=== PATIENT | male | born 1980 | race Two or more races ===

== ENCOUNTER 2020-04-30 14:14 | Emergency (ER) | payer SELFPAY ==
[~2020-04-30] VITALS: Ht 167.6 cm; Wt 63.5 kg
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
[2020-04-30 14:29] VITALS: BP 134/67
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
[2020-04-30] MEDS ORDERED: Tetanus/Diptheria/Pertussis IM ONE (14:45)
[2020-04-30] MEDS ORDERED: NORCO 7.5-3251 EACH ORAL (15:18)
[2020-04-30] MEDS ORDERED: IBUPROFEN600 M1 ORAL (15:18)
--- NOTE | 2020-04-30 15:38 | NUR ---
ED Nurse Note: pt's R fingers and L hand placed in splint per ERMD order, pt tolerated well, verbalized understanding of f/u instructions.
[2020-04-30 15:50] VITALS: BP 134/67
--- NOTE | 2020-04-30 15:50 | NUR ---
ER DISCHARGE NOTE: Patient is cleared to be discharged per ERMD, pt is aox4, on room air, with stable vital signs. pt was given dc, prescription and follow up instructions, pt was able to verbalize understanding, pt id band removed without complications. pt is able to ambulate with steady gait. pt took all belongings.
--- NOTE | 2020-04-30 18:49 | Diagnostic Imaging Report ---
Indication: Left hand pain Technique: 3 views left hand Comparison: none Findings: There is a comminuted impacted fracture of the fifth metacarpal shaft. The joint spaces are preserved. No other acute fractures. No dislocations. Impression: Positive for fifth metacarpal shaft fracture
--- NOTE | 2020-04-30 18:55 | Diagnostic Imaging Report ---
Clinical Indication:Wrist pain Technique: 3 views of the left wrist Comparison: None Findings: No acute fractures. No dislocations. The joint spaces are preserved Impression: Negative
--- NOTE | 2020-04-30 19:04 | Diagnostic Imaging Report ---
Indication: Right hand pain Technique: 3 views right hand Comparison: none Findings: Linear opacity is seen adjacent to the head of the third metacarpal, best visualized on the AP view. There is a corner fracture, minimally displaced, of the lateral base of the fifth proximal phalanx. No other acute fractures. No dislocations. Impression: Positive for fifth proximal phalangeal fracture. Possible small foreign body adjacent to the head of the third metacarpal. Correlate with clinical findings.
== END 2020-04-30 15:50 | disposition home or self-care (01) ==
LOC: EMR 14:30
DX: S62.327A Displaced fracture of shaft of fifth metacarpal bone, left hand, initial encounter for closed fracture (principal); S62.616A Displaced fracture of proximal phalanx of right little finger, initial encounter for closed fracture; V43.52XA Car driver injured in collision with other type car in traffic accident, initial encounter; Y92.410 Unspecified street and highway as the place of occurrence of the external cause; Z23 Encounter for immunization
CPT/HCPCS: 29125; 90471; 90715; 99284